=== PATIENT | female | born 1975 | race Hispanic/Latino ===

== ENCOUNTER 2017-12-29 23:58 | Emergency (ER) | payer SELFPAY ==
[2017-12-30] MEDS ORDERED: ACETAMINOPHEN 325 MG TAB ONE (00:15)
[2017-12-30] MEDS ORDERED: IBUPROFEN 600 MG TABLET ONE (00:15)
== END 2017-12-30 00:54 | disposition home or self-care (01) ==
LOC: EDH 23:58
DX: J11.1 Influenza due to unidentified influenza virus with other respiratory manifestations (principal); I10 Essential (primary) hypertension; G43.909 Migraine, unspecified, not intractable, without status migrainosus; J45.909 Unspecified asthma, uncomplicated
CPT/HCPCS: 71046; 87804

== ENCOUNTER 2018-01-11 13:43 | Emergency (ER) | payer SELFPAY | END 2018-01-11 14:44 | disposition home or self-care (01) | LOC: EDH 13:43 | DX: M26.622 Arthralgia of left temporomandibular joint (principal); G43.909 Migraine, unspecified, not intractable, without status migrainosus; J45.909 Unspecified asthma, uncomplicated; I10 Essential (primary) hypertension ==

== ENCOUNTER 2018-10-27 13:24 | Emergency (ER) | payer OTHER ==
[2018-10-27 13:49] LABS: BASOPHILS % (AUTO) 0.6 % (0.0-5.0); EOSINOPHILS % (AUTO) 4.3 % (0.0-8.0); HEMATOCRIT 43.8 % (36-48); LYMPHOCYTES % (AUTO) 29.2 % (21.0-51.0); MEAN CORPUSCULAR HEMOGLOBIN 30.5 pg (27.0-33.0); MEAN CORPUSCULAR HGB CONC 32.9 g/dL (32.0-36.0); MEAN CORPUSCULAR VOLUME 92.7 fL (79-99); MONOCYTES % (AUTO) 7.3 % (3.0-13.0); NEUTROPHILS % (AUTO) 58.6 % (40.0-77.0); PLATELET COUNT (AUTO) 224 K/uL (130-400); RED BLOOD CELL COUNT(AUTO) 4.73 MIL/uL (4.00-5.50); RED CELL DISTRIBUTION WIDTH 13.4 % (11.0-15.5); WHITE BLOOD COUNT (AUTO) 8.8 K/uL (4.8-10.8)
[2018-10-27 14:00] LABS: CREATININE 0.6 mg/dL (0.5-1.5); POTASSIUM 3.7 mmol/L (3.5-5.1)
[2018-10-27 14:05] LABS: BILIRUBIN,TOTAL 0.4 mg/dL (0.2-1.0)
[2018-10-27 14:08] LABS: INR 0.97 (0.85-1.15); PARTIAL THROMBOPLASTIN TIME 28.1 SEC (26.3-35.5); PROTHROMBIN TIME 10.2 SEC (9.6-11.6)
[2018-10-27] MEDS ORDERED: IBUPROFEN 200 MG TAB ONE (15:09)
[2018-10-27] MEDS ORDERED: IBUPROFEN 400 MG TABLET ONE (15:09)
[2018-10-27] MEDS ORDERED: IBUPROFEN 600 MG TABLET ONE (15:11)
== END 2018-10-27 16:00 | disposition home or self-care (01) ==
LOC: EDH 13:24
DX: R07.2 Precordial pain (principal); R11.2 Nausea with vomiting, unspecified; F41.9 Anxiety disorder, unspecified; J45.909 Unspecified asthma, uncomplicated; F31.9 Bipolar disorder, unspecified; I10 Essential (primary) hypertension; G43.909 Migraine, unspecified, not intractable, without status migrainosus; Z90.710 Acquired absence of both cervix and uterus
CPT/HCPCS: 36415; 71045; 80053; 82550; 84484; 85025; 85610; 85730; 93005

== ENCOUNTER 2018-11-15 21:26 | Inpatient (IN) | payer SELFPAY ==
[~2018-11-15] VITALS: Ht 154.9 cm; Wt 78.2 kg
[2018-11-15 21:54] LABS: HEMATOCRIT 44.1 % (36-48); LYMPHOCYTES % (AUTO) 25.2 % (21.0-51.0); MEAN CORPUSCULAR HEMOGLOBIN 31.3 pg (27.0-33.0); MEAN CORPUSCULAR HGB CONC 33.3 g/dL (32.0-36.0); MONOCYTES % (AUTO) 7.5 % (3.0-13.0); NEUTROPHILS % (AUTO) 64.3 % (40.0-77.0); NUCLEATED RED BLOOD CELLS 0.2 % (0.0-0.19); PLATELET COUNT (AUTO) 270 K/uL (130-400); RED BLOOD CELL COUNT(AUTO) 4.69 MIL/uL (4.00-5.50); RED CELL DISTRIBUTION WIDTH 13.5 % (11.0-15.5); WHITE BLOOD COUNT (AUTO) 11.2 K/uL (4.8-10.8)
[2018-11-15] MEDS ORDERED: LIDOCAINE HCL 2% VISCOUS 15 ML UDCUP ONE (21:54)
[2018-11-15] MEDS ORDERED: MAG HYDROX/AL HYDROX/SIMETH ES 30 ML SUSP UDCUP ONE (21:54)
[2018-11-15 21:59] LABS: APPEARANCE,URINE Cloudy (CLEAR); BILIRUBIN,URINE Negative (NEGATIVE); COLOR,URINE Yellow (YELLOW); GLUCOSE, URINE (UA) Negative (NEGATIVE); KETONES,URINE Negative (NEGATIVE); LEUKOCYTE ESTERASE ,URINE Trace (NEGATIVE); NITRATE,URINE Negative (NEGATIVE); OCCULT BLOOD,URINE Negative (NEGATIVE); PH,URINE 7.5 (5.0-8.0); PROTEIN,URINE Negative (NEGATIVE)
[2018-11-15 22:06] LABS: AMORPHOUS SEDIMENT,UR Few /LPF (None Seen); BACTERIA,URINE Few /HPF (None Seen); RBC,URINE 0-1 /HPF (0-1); SQUAMOUS EPITHELIAL CELL,UR Moderate /HPF (0-2)
[2018-11-15 22:10] LABS: CREATININE 0.7 mg/dL (0.5-1.5); POTASSIUM 4.1 mmol/L (3.5-5.1)
[2018-11-15 22:15] LABS: ALBUMIN 3.7 g/dL (3.5-5.0); BILIRUBIN,TOTAL 0.2 mg/dL (0.2-1.0); TOTAL PROTEIN, SERUM 7.6 g/dL (6.0-8.3)
[2018-11-15] MEDS ORDERED: IOHEXOL-350 75 ML VIAL IV ONE (22:26)
[2018-11-15] MEDS ORDERED: SODIUM CHLORIDE 0.9% 1000ML 1,000 ML IV ONE (23:04)
[2018-11-15] MEDS ORDERED: KETOROLAC TROMETHAMINE 30MG/ML ONE (23:04)
[2018-11-15] MEDS ORDERED: ONDANSETRON HCL 4 MG/2 ML VIAL ONE (23:16)
[2018-11-15] MEDS ORDERED: MORPHINE SULFATE 4 MG/1ML SYG ONE (23:16)
[2018-11-16] VITALS (7 sets, daily range): BP systolic 111–157; BP diastolic 58–93
[2018-11-16] MEDS ORDERED: MORPHINE SULFATE 4 MG/1ML SYG ONE ×3 (00:29→20:12)
[2018-11-16] MEDS ORDERED: ONDANSETRON HCL 4 MG/2 ML VIAL IV PRN (01:00)
[2018-11-16] MEDS ORDERED: MORPHINE SULFATE 2 MG/ML 1ML SYG IV PRN (01:00)
[2018-11-16] MEDS ORDERED: ACETAMINOPHEN 325 MG TAB PO PRN (01:00)
[2018-11-16 01:32] LABS: CRP QUANTITATIVE 3.6 mg/L (0.00-9.0); POTASSIUM 4.3 mmol/L (3.5-5.1)
[2018-11-16 01:33] LABS: ALBUMIN 3.5 g/dL (3.5-5.0); BILIRUBIN,TOTAL 0.2 mg/dL (0.2-1.0); CREATININE 0.6 mg/dL (0.5-1.5); TOTAL PROTEIN, SERUM 7.2 g/dL (6.0-8.3)
[2018-11-16] MEDS: SODIUM CHLORIDE 0.9% 1000ML 1,000 ML IV SCH ×3 (02:39→14:10)
[2018-11-16] MEDS: FAMOTIDINE/PF 20 MG/2 ML VIAL IV SCH ×2 (08:50→20:14)
[2018-11-16 15:56] LABS: AMPHET/METH SCREEN,URINE NEGATIVE (NEGATIVE); BARBITURATE SCREEN, URINE NEGATIVE (NEGATIVE); BENZODIAZEPINES SCREEN,URINE NEGATIVE (NEGATIVE); CANNABINOID SCREEN,URINE NEGATIVE (NEGATIVE); COCAINE SCREEN,URINE POSITIVE (NEGATIVE); OPIATE SCREEN,URINE NEGATIVE (NEGATIVE); PHENCYCLIDINE SCREEN,URINE NEGATIVE (NEGATIVE)
[2018-11-16 16:44] LABS: CREATINE KINASE, TOTAL 20 U/L (21-232); MYOGLOBIN 26 ng/mL (10-92); TROPONIN I < 0.04 ng/mL (0.00-0.06)
[2018-11-17] MEDS: SODIUM CHLORIDE 0.9% 1000ML 1,000 ML IV SCH ×2 (02:00→09:30)
[2018-11-17 03:00] VITALS: BP 152/83
[2018-11-17 04:54] LABS: BASOPHILS % (AUTO) 0.7 % (0.0-5.0); HEMATOCRIT 41.5 % (36-48); MEAN CORPUSCULAR HEMOGLOBIN 30.6 pg (27.0-33.0); MEAN CORPUSCULAR HGB CONC 32.5 g/dL (32.0-36.0); MONOCYTES % (AUTO) 7.1 % (3.0-13.0); NEUTROPHILS % (AUTO) 58.2 % (40.0-77.0); NUCLEATED RED BLOOD CELLS 0.1 % (0.0-0.19); PLATELET COUNT (AUTO) 212 K/uL (130-400); RED BLOOD CELL COUNT(AUTO) 4.41 MIL/uL (4.00-5.50); RED CELL DISTRIBUTION WIDTH 13.5 % (11.0-15.5); WHITE BLOOD COUNT (AUTO) 8.8 K/uL (4.8-10.8)
[2018-11-17 05:12] LABS: CREATININE 0.7 mg/dL (0.5-1.5); POTASSIUM 4.3 mmol/L (3.5-5.1)
[2018-11-17 07:00] VITALS: BP 129/75
[2018-11-17] MEDS ORDERED: LACTULOSE 20 GM/30 ML UDCUP PO SCH (09:15)
[2018-11-17] MEDS: FAMOTIDINE/PF 20 MG/2 ML VIAL IV SCH (09:28)
[2018-11-17 11:00] VITALS: BP 124/91
[2018-11-17 16:00] VITALS: BP 108/56
== END 2018-11-17 17:45 | disposition home or self-care (01) | DRG 440 ==
LOC: EDH 21:26 → EDHIP 21:27 → OBSVTOIN 21:27 → 3BH 11-16 01:21
PROVIDERS: ADMIT Internal Medicine; ATTEND Internal Medicine
DX: K85.90 Acute pancreatitis without necrosis or infection, unspecified (principal); I10 Essential (primary) hypertension; K59.00 Constipation, unspecified; F41.9 Anxiety disorder, unspecified; F32.9 Major depressive disorder, single episode, unspecified; D72.829 Elevated white blood cell count, unspecified; R00.1 Bradycardia, unspecified; F14.10 Cocaine abuse, uncomplicated; I20.9 Angina pectoris, unspecified; Z90.710 Acquired absence of both cervix and uterus
CPT/HCPCS: 36415; 71045; 74177; 80048; 80053; 80305; 81001; 82150; 82550; 83605; 83690; 83874; 84484; 85025; 86140; 87088; 93005; G0378; J1885; J2270; J2405; J3490; J7030; Q9967

== ENCOUNTER 2019-04-11 12:45 | Emergency (ER) | payer SELFPAY ==
[2019-04-11] MEDS ORDERED: ORPHENADRINE CITRATE 30 MG/ML ML ONE (13:02)
[2019-04-11] MEDS ORDERED: KETOROLAC TROMETHAMINE 60 MG/2 ML VIAL ONE (13:02)
== END 2019-04-11 13:45 | disposition home or self-care (01) ==
LOC: EDH 12:45
DX: M54.41 Lumbago with sciatica, right side (principal); F41.9 Anxiety disorder, unspecified; J45.909 Unspecified asthma, uncomplicated; F31.9 Bipolar disorder, unspecified; I10 Essential (primary) hypertension; G43.909 Migraine, unspecified, not intractable, without status migrainosus; Z87.891 Personal history of nicotine dependence; Z90.49 Acquired absence of other specified parts of digestive tract; Z90.710 Acquired absence of both cervix and uterus
CPT/HCPCS: 72100; 96372 ×2; 99284; J1885; J2360

== ENCOUNTER 2019-11-11 01:43 | Emergency (ER) | payer OTHER ==
[2019-11-11] MEDS ORDERED: KETOROLAC TROMETHAMINE 60 MG/2 ML VIAL ONE (02:01)
== END 2019-11-11 02:42 | disposition home or self-care (01) ==
LOC: EDH 01:43
DX: M25.532 Pain in left wrist (principal); M25.531 Pain in right wrist; J45.909 Unspecified asthma, uncomplicated; F31.9 Bipolar disorder, unspecified; F41.9 Anxiety disorder, unspecified; I10 Essential (primary) hypertension; G43.909 Migraine, unspecified, not intractable, without status migrainosus; Z90.710 Acquired absence of both cervix and uterus; Z98.890 Other specified postprocedural states
CPT/HCPCS: 73110; 96372; 99284; J1885

== ENCOUNTER 2020-10-04 23:34 | Emergency (ER) | payer OTHER ==
[2020-10-04] MEDS ORDERED: PROMETHAZINE HCL 25 MG/ML 1ML AMPULE IM ONE (23:35)
[2020-10-04] MEDS ORDERED: SODIUM CHLORIDE 0.9% 1000ML 1,000 ML IV ONE (23:35)
[2020-10-04 23:47] LABS: BASOPHILS % (AUTO) 0.4 % (0.0-5.0); EOSINOPHILS % (AUTO) 0.7 % (0.0-8.0); HEMATOCRIT 44.3 % (36-48); MEAN CORPUSCULAR HEMOGLOBIN 30.6 pg (27.0-33.0); MEAN CORPUSCULAR HGB CONC 33.6 g/dL (32.0-36.0); MONOCYTES % (AUTO) 7.7 % (3.0-13.0); PLATELET COUNT (AUTO) 290 K/uL (130-400); RED BLOOD CELL COUNT(AUTO) 4.87 MIL/uL (4.00-5.50); WHITE BLOOD COUNT (AUTO) 12.9 K/uL (4.8-10.8)
[2020-10-04 23:57] LABS: BILIRUBIN,URINE Negative (NEGATIVE); COLOR,URINE Dark Yellow (YELLOW); GLUCOSE, URINE (UA) Negative (NEGATIVE); KETONES,URINE Negative (NEGATIVE); LEUKOCYTE ESTERASE ,URINE Negative (NEGATIVE); NITRATE,URINE Negative (NEGATIVE); OCCULT BLOOD,URINE Negative (NEGATIVE); PH,URINE 6.5 (5.0-8.0); PROTEIN,URINE POS 2+ mg/dL (NEGATIVE)
[2020-10-05 00:01] LABS: CREATININE 0.7 mg/dL (0.5-1.5); POTASSIUM 3.2 mmol/L (3.5-5.1)
[2020-10-05 00:07] LABS: ALBUMIN 4.4 g/dL (3.5-5.0); BILIRUBIN,TOTAL 0.6 mg/dL (0.2-1.0); TOTAL PROTEIN, SERUM 8.6 g/dL (6.0-8.3)
[2020-10-05 00:18] LABS: APPEARANCE,URINE CLEAR (CLEAR)
[2020-10-05 00:20] LABS: BACTERIA,URINE None Seen /HPF (None Seen); RBC,URINE 0-1 /HPF (0-1); SQUAMOUS EPITHELIAL CELL,UR Moderate /HPF (0-2); WBC,URINE None Seen /HPF (0-1)
[2020-10-05] MEDS ORDERED: LORAZEPAM 2 MG/ML 1 ML VIAL ONE (02:06)
== END 2020-10-05 05:32 | disposition home or self-care (01) ==
LOC: EDH 23:34
DX: K52.9 Noninfective gastroenteritis and colitis, unspecified (principal); J45.909 Unspecified asthma, uncomplicated; F41.9 Anxiety disorder, unspecified; F31.9 Bipolar disorder, unspecified; I10 Essential (primary) hypertension; G43.909 Migraine, unspecified, not intractable, without status migrainosus; Z90.49 Acquired absence of other specified parts of digestive tract; Z90.710 Acquired absence of both cervix and uterus
CPT/HCPCS: 36415; 80053; 81001; 83690; 85025; 93005; 96361; 96372; 96374; 99284; J2060; J2550; J7030

== ENCOUNTER 2021-03-12 18:50 | Emergency (ER) | payer OTHER | END 2021-03-12 21:27 | disposition left against medical advice (07) | LOC: EDH 18:50 | DX: R10.9 Unspecified abdominal pain (principal); F41.9 Anxiety disorder, unspecified; F32.9 Major depressive disorder, single episode, unspecified; J45.909 Unspecified asthma, uncomplicated; I10 Essential (primary) hypertension; G43.909 Migraine, unspecified, not intractable, without status migrainosus; Z90.49 Acquired absence of other specified parts of digestive tract; Z90.710 Acquired absence of both cervix and uterus; Z53.21 Procedure and treatment not carried out due to patient leaving prior to being seen by health care provider ==

== ENCOUNTER 2021-05-18 13:09 | Emergency (ER) | payer SELFPAY ==
[~2021-05-18] VITALS: Ht 154.9 cm; Wt 80.7 kg
[2021-05-18 13:11] VITALS: BP 94/61
[2021-05-18 15:03] VITALS: BP 94/61
[2021-05-18] MEDS ORDERED: KETOROLAC 30MG VIAL (30MG/ML) IM ONE (15:15)
[2021-05-18] MEDS ORDERED: KETOROLAC 30MG VIAL (30MG/ML) ONE (16:30)
[2021-05-18] MEDS ORDERED: AMOX-426 PO (16:58)
[2021-05-18] MEDS ORDERED: PSEU120T62 PO (16:58)
[2021-05-18] MEDS ORDERED: IBUP-2070 PO (16:58)
== END 2021-05-18 17:03 | disposition home or self-care (01) ==
LOC: EDH 13:09
DX: J01.90 Acute sinusitis, unspecified (principal); J45.909 Unspecified asthma, uncomplicated; Z20.822 Contact with and (suspected) exposure to COVID-19; I10 Essential (primary) hypertension; Z90.710 Acquired absence of both cervix and uterus; Z79.899 Other long term (current) drug therapy; Z98.51 Tubal ligation status
CPT/HCPCS: 36415; 71045; 87635; 87804 ×2; 87880; 96372; 99284; C9803; J1885

== ENCOUNTER 2021-06-14 01:48 | Emergency (ER) | payer OTHER, SELFPAY ==
[~2021-06-14] VITALS: Ht 154.9 cm; Wt 81.6 kg
[~2021-06-14 01:48] MED LIST: AMOX-426 PO; IBUP-2070 PO; PSEU120T62 PO
[2021-06-14 01:50] VITALS: BP 147/89
[2021-06-14] MEDS ORDERED: PRED20TA3 PO (03:58)
[2021-06-14] MEDS ORDERED: ORPH-43 PO (03:58)
[2021-06-14] MEDS ORDERED: LIDOP TP (03:58)
[2021-06-14] MEDS ORDERED: MELO7.5T12 PO (03:58)
[2021-06-14] MEDS ORDERED: PREDNISONE 20 MG TABLET PO ONE (04:00)
[2021-06-14] MEDS ORDERED: KETOROLAC 60 MG VIAL (30MG/ML) IM ONE (04:00)
[2021-06-14] MEDS ORDERED: ORPHENADRINE CITRATE 30 MG/ML ML IM ONE (04:00)
[2021-06-14 04:17] VITALS: BP 141/85
== END 2021-06-14 04:19 | disposition home or self-care (01) ==
LOC: EDH 01:48
DX: M62.830 Muscle spasm of back (principal); I10 Essential (primary) hypertension; F41.9 Anxiety disorder, unspecified; Z79.52 Long term (current) use of systemic steroids; Z79.1 Long term (current) use of non-steroidal anti-inflammatories (NSAID); Z98.51 Tubal ligation status
CPT/HCPCS: 96372 ×2; 99284; J1885; J2360

== ENCOUNTER 2024-10-29 11:15 | Emergency (ER) | payer SELFPAY ==
[~2024-10-29] VITALS: Ht 154.9 cm; Wt 83.9 kg
[~2024-10-29 11:15] MED LIST changes: +LIDOP TP; +MELO7.5T12 PO; +ORPH100T4 PO; +PRED20TA3 PO
[2024-10-29] MEDS: HYDROcodone/APAP 5/325 1 TAB TABLET PO STA (12:03)
--- NOTE | 2024-10-29 12:47 | HMCIMG ---
HAND 3+VWS RT HISTORY: Status post fall COMPARISON: None TECHNIQUE: 3 images of right hand were obtained. FINDINGS: Radiocarpal joint space narrowing and interphalangeal joint space narrowing are seen. There is no acute displaced fracture or dislocation. There is soft tissue swelling. Degenerative changes are seen. IMPRESSION: 1. Findings as described above.
--- NOTE | 2024-10-29 12:49 | HMCIMG ---
WRIST 2VWS RT HISTORY: Trauma COMPARISON: None TECHNIQUE: 3 images of right wrist were obtained. FINDINGS: There is no acute displaced fracture or dislocation. Degenerative changes are seen. IMPRESSION: 1. Findings as described above.
--- NOTE | 2024-10-29 12:55 | HMCIMG ---
SHOULDER COMP 2+VWS RT HISTORY: Trauma COMPARISON: None TECHNIQUE: 2 images of right shoulder were obtained. FINDINGS: There is no acute displaced fracture or dislocation. Degenerative changes are seen. IMPRESSION: 1. Findings as described above.
--- NOTE | 2024-10-29 12:55 | HMCIMG ---
FOREARM 2VWS RT HISTORY: Status post fall COMPARISON: None TECHNIQUE: 2 images of right forearm were obtained. FINDINGS: There is no acute displaced fracture or dislocation. Degenerative changes are seen. IMPRESSION: 1. Findings as described above.
[2024-10-29] MEDS ORDERED: NAPR-1192 PO (13:35)
--- NOTE | 2024-10-29 13:36 | ERN ---
ED Note History of Present Illness Stated Complaint: SLIPPED OUT OF VEHICLE HURT RT ARM POSS DISLOCATIO Chief Complaint: Arm Swelling/Redness Time Seen by MD: 11:19 Time Seen by Midlevel: 11:22 Dictation: 48-year-old female came in complaining of right shoulder, right wrist, right hand pain after she slipped when she was getting out of her truck last night. Denies any LOC, denies taking any blood thinners. Patient also has bruising to the lower lip, no laceration noted to the lip. Allergies: Coded Allergies: No Known Drug Allergies (Unverified Allergy, Unknown, 11/16/18) Uncoded Allergies: NKDA (Allergy, Unknown, 04/11/19) Home Meds Active Scripts Naproxen (Naproxen) 375 Mg Tablet, 375 MG PO BID for 7 Days, #20 TAB 0 Refills Prov:ABEL VERDUZCO NP 10/29/24 Prednisone (Prednisone) 20 Mg Tablet, 40 MG PO DAILY for 3 Days, #6 TAB 0 Refills Prov:NINA JOHNS MD 06/14/21 Orphenadrine Citrate (Orphenadrine Citrate) 100 Mg Tablet.er, 100 MG PO [id number], #20 TAB 0 Refills Prov:NINA JOHNS MD 06/14/21 Meloxicam (Mobic) 7.5 Mg Tablet, 7.5 MG PO DAILY, #10 TAB 0 Refills Prov:NINA JOHNS MD 06/14/21 Lidocaine (Lidoderm Patch 5%) 1 Patch Patch, 1 PATCH TP DAILY PRN for PAIN LEVEL 1 TO 5, #30 ADH.PATCH 0 Refills Prov:NINA JOHNS MD 06/14/21 Pseudoephedrine HCl (Sudafed 12 Hour) 120 Mg Tablet.er, 120 MG PO BID for 5 Days, #1 TAB Prov:TRESSA ANDREWS 05/18/21 Ibuprofen (Ibuprofen) 600 Mg Tablet, 600 MG PO Q6H PRN for PAIN, #15 TAB Prov:TRESSA ANDREWS 05/18/21 Amoxicillin/Potassium Clav (Augmentin 500-125 Tablet) 1 Each Tablet, 1 EACH PO TID for 10 Days, #30 TAB Prov:TRESSA ANDREWS 05/18/21 Past Medical History Past Medical History: Anxiety, Hypertension Additional Past Medical Hx: CARPAL TUNNEL Surgical History: Hysterectomy, BTL Surgical History Other: TUBAL LIGATION Social History: ETOH Review of System Dictation Constitutional: Negative for fever,chills, and weight loss Eyes: Negative for injury, pain,redness, and discharge ENT: Negative for injury,pain or swelling Cardiovascular: Negative for chest pain, palpitations, and edema Respiratory: Negative for shortness of breath, cough, and wheezing, Abdomen/GI: Negative for abdominal pain, nausea, vomiting, diarrhea, and constipation Back: Negative for injury and pain : Negative for injury, bleeding and discharge MS/Extremity: Complaining of right shoulder, right wrist and right hand pain Skin: Negative for rash, and discoloration Neuro: Negative for headache, weakness, numbness, tingling, and seizure Psych: Negative for suicide ideation, homicidal ideation, and hallucinations Review of Systems: was completed Initial Vital Sign VS Vital Signs Date Time Temp Pulse Resp B/P (MAP) Pulse Ox O2 Delivery O2 Flow Rate FiO2 10/29/24 11:26 97.5 74 16 156/79 94 Room Air 0 10/29/24 11:32 21 Physical Exam Dictation General: awake, alert, NAD, patient has bruising to the left arm states that he has an old bruise from a previous fall. Head/Face: Normocephalic, atraumatic Eyes: PERRL, EOMI, vision at baseline ENT: oral cavity clear, TMs clear, no signs of infection Neck: Trachea midline, supple, no nuchal rigidity Cardiovascular: RRR, normal S1/S2, No MRGs, no JVD Respiratory: CTAB, no respiratory distress, No rales or wheezes Abdomen: Soft, non-tender, non-distended, normal bowel sounds, no guarding or rebound. Skin: Warm, dry, normal turgor, no rash MS/Extremity: Pulses equal, no cyanosis, neurovascular intact, FROM, but he is complaining of pain upon movement Neuro: COAx4, GCS 15, strength 5/5, CN 2-12 intact, normal cerebellar exam, normal gait, Psych: Normal behavior, mood, and affect normal Results (Laboratory/Radiology) X-RAY Comment: [place] [address] [place] [id number] IMAGING REPORT Signed PATIENT: FIDENCIO SWAN MR#: [id number] : 1975 SEX: F AGE: 48 LOCATION: [facility] ORDER 1131 STATUS: REG ER [facility] REPORT#: [id number] SERVICE 1129 REASON: trauma ORDERING PHYSICIAN: ABEL VERDUZCO NP PROCEDURE: WRST 2V RT - WRIST 2VWS RT WRIST 2VWS RT HISTORY: Trauma COMPARISON: None TECHNIQUE: 3 images of right wrist were obtained. FINDINGS: There is no acute displaced fracture or dislocation. Degenerative changes are seen. IMPRESSION: 1. Findings as described above. DICTATED BY: RADAMES SOFIA MD DATE: 10/29/24 1245 ELECTRONICALLY SIGNED BY: RADAMES SOFIA MD DATE: 10/29/24 1249 [place] [id number] [id number] IMAGING REPORT Signed PATIENT: FIDENCIO SWAN MR#: [id number] : 1975 SEX: F AGE: 48 LOCATION: [facility] ORDER 1131 STATUS: REG ER REPORT#: [id number] SERVICE 1124 REASON: trauma ORDERING PHYSICIAN: ABEL VERDUZCO NP PROCEDURE: SHOL 2V RT - SHOULDER COMP 2+VWS RT SHOULDER COMP 2+VWS RT HISTORY: Trauma COMPARISON: None TECHNIQUE: 2 images of right shoulder were obtained. FINDINGS: There is no acute displaced fracture or dislocation. Degenerative changes are seen. IMPRESSION: 1. Findings as described above. DICTATED BY: RADAMES SOFIA MD DATE: 10/29/24 1253 ELECTRONICALLY SIGNED BY: RADAMES SOFIA MD DATE: 10/29/24 1255 [facility] [address] [place] [id number] IMAGING REPORT Signed PATIENT: FIDENCIO SWAN MR#: [id number] : 1975 SEX: F AGE: 48 LOCATION: [facility] ORDER 1131 STATUS: REG ER [facility] REPORT#: [id number] SERVICE 1129 REASON: trauma ORDERING PHYSICIAN: ABEL VERDUZCO NP PROCEDURE: FORARMR - FOREARM 2VWS RT FOREARM 2VWS RT HISTORY: Status post fall COMPARISON: None TECHNIQUE: 2 images of right forearm were obtained. FINDINGS: There is no acute displaced fracture or dislocation. Degenerative changes are seen. IMPRESSION: 1. Findings as described above. DICTATED BY: RADAMES SOFIA MD DATE: 10/29/24 1252 ELECTRONICALLY SIGNED BY: RADAMES SOFIA MD DATE: 10/29/24 1255 ED Course ED Course Orders Procedure Category Date Status Time Shoulder Comp 2+Vws Rt RAD 10/29/24 Resulted 11:29 Wrist 2vws Rt RAD 10/29/24 Resulted 11:29 Hand 3+Vws Rt RAD 10/29/24 Resulted 11:29 Forearm 2vws Rt RAD 10/29/24 Resulted 11:29 Hydrocodone/Apap PHA 10/29/24 Complete 5/325 (Capron 5/325mg) 11:29 Sling MILDRED 10/29/24 Complete 13:36 Current Medications Medications (Trade) Dose Ordered Sig/Alonso Route PRN Reason Start Time Stop Time Status Last Admin Dose Admin Acetaminophen/ Hydrocodone Bitart (NORco 5/325MG) 1 tab ONCE STAT PO 10/29/24 11:29 10/29/24 11:31 DC 10/29/24 12:03 Vital Signs Date Time Temp Pulse Resp B/P (MAP) Pulse Ox O2 Delivery O2 Flow Rate FiO2 10/29/24 14:00 97.5 73 16 142/69 94 Room Air* 0 21 10/29/24 11:32 97.5 73 16 156/79 97 Room Air* 0 21 10/29/24 11:26 97.5 74 16 156/79 94 Room Air 0 Medical Decision Making MDM MDM: 48-year-old female came in complaining of right shoulder, right wrist, right hand pain after she slipped when she was getting out of her truck last night. Denies any LOC, denies taking any blood thinners. Patient also has bruising to the lower lip, no laceration noted to the lip. Patient is here neurologically intact, has full range of motion to all extremities however is complaining of pain upon movement of the right shoulder on abduction. No obvious deformities or abrasions noted. X-ray of the right shoulder, right elbow, right wrist, and right hand show no acute findings. Patient is placed in a sling and given medication for pain. Educated to follow up with PCP in 1-2 days and to return to the ER if symptoms worsen. Patient verbalized understanding, answered all questions. Differential diagnosis: Shoulder dislocation, shoulder fracture, wrist fracture, wrist dislocation, shoulder contusion, wrist contusion, hand contusion Rationale: Tests considered and ordered secondary to shared decision making include: Previous outside records reviewed: Old ER visits. Risk of complication and/or morbidity or mortality of patient management: None Medications-Per medication reconciliation Need for hospitalization: Patient does not meet criteria for hospitalization. Need for emergency major/minor surgery: No There are no social concerns with this patient. Prescription drug management Prescriptions will include symptomatic care Patient's prior external medical records from other ER visits were reviewed by me as indicated. Prior testing and results from previous visits were reviewed. Prior tests were taken into account with medical decision making and resource utilization, independent historian/historians were used to obtain complete medical history. I independently interpreted the test that were performed, results were reviewed by me and considered findings on radiology if ordered. Medical management and examination interpretation discussions were had by me with other qualified healthcare professionals as indicated for the patient's care. DX & DISP Disposition: Discharge Departure Impression: Primary Impression: Fall Additional Impressions: Shoulder contusion, Wrist contusion, Hand contusion Condition: Stable Scripts Naproxen (Naproxen) 375 Mg Tablet 375 MG PO BID for 7 Days, #20 TAB 0 Refills Prov: ABEL VERDUZCO NP 10/29/24 Referrals: MOHIT AGUILAR MD (PCP) Time of Disposition: 13:35 I have reviewed the case, and I agree with, Diagnosis and Plan I performed this substantive portion of this visit. I have reviewed and personally made and approve the management plan that is documented in the note by myself or the LAINA. I acknowledge full responsibility for the patient's management plan. ABEL VERDUZCO NP Oct 29, 2024 13:36 ESTEBAN GREENE MD Oct 30, 2024 10:01
[2024-10-29 14:00] VITALS: BP 142/69; PULSE 73; RESP 16; TEMP 97.5; O2SAT 94
== END 2024-10-29 14:11 | disposition home or self-care (01) ==
LOC: EDH 11:15
DX: S40.011A Contusion of right shoulder, initial encounter (principal); S60.211A Contusion of right wrist, initial encounter; S60.221A Contusion of right hand, initial encounter; I10 Essential (primary) hypertension; Z79.1 Long term (current) use of non-steroidal anti-inflammatories (NSAID); Z79.52 Long term (current) use of systemic steroids; Z90.710 Acquired absence of both cervix and uterus; W01.10XA Fall on same level from slipping, tripping and stumbling with subsequent striking against unspecified object, initial encounter; Y93.89 Activity, other specified; Y92.89 Other specified places as the place of occurrence of the external cause; Y99.8 Other external cause status
CPT/HCPCS: 73030; 73090; 73100; 73130; 99284